=== PATIENT | female | born 1985 | race Caucasian/White ===

== ENCOUNTER 2019-08-13 11:37 | Emergency (ER) | payer BC ==
[~2019-08-13] VITALS: Ht 170.2 cm; Wt 94.9 kg
[2019-08-13 11:40] VITALS: BP 134/88
[2019-08-13 12:31] LABS: BASOPHILS # (AUTO) 0.09 x10^3/uL (0-0.1); BASOPHILS % (AUTO) 1 % (0-1); EOSINOPHILS # (AUTO) 0.27 x10^3/uL (0-0.4); EOSINOPHILS % (AUTO) 3 % (1-7); LYMPHOCYTES # (AUTO) 2.32 x10^3/uL (1-3.4); LYMPHOCYTES % (AUTO) 26 % (22-44); MD NO; MEAN CORPUSCULAR HEMOGLOBIN 27.3 pg (27.0-34.8); MEAN CORPUSCULAR HGB CONC 32.8 g/dL (32.4-35.8); MEAN CORPUSCULAR VOLUME 83.2 fL (80-100); MEAN PLATELET VOLUME 8.9 fL (7.4-10.4); MONOCYTES # (AUTO) 0.53 x10^3/uL (0.2-0.8); MONOCYTES % (AUTO) 6 % (2-9); NEUTROPHILS # (AUTO) 5.79 x10^3/uL (1.8-6.8); NEUTROPHILS % (AUTO) 64 % (42-75); PLATELET COUNT 306 x10^3/uL (130-400); RED BLOOD COUNT 4.88 x10^6/uL (3.82-5.3); RED CELL DISTRIBUTION WIDTH 13.7 % (9.6-15.2)
[2019-08-13 12:43] LABS: ANION GAP 6 mmol/L (5-15); CALCIUM 9.7 mg/dL (8.5-10.1); CHLORIDE 106 mmol/L (98-107)
[2019-08-13 12:49] LABS: CREATININE 0.92 mg/dL (0.55-1.02)
== END 2019-08-13 13:38 | disposition home or self-care (01) ==
LOC: ED 12:08
DX: N92.4 Excessive bleeding in the premenopausal period (principal); N93.8 Other specified abnormal uterine and vaginal bleeding
CPT/HCPCS: 36415; 76830; 80048; 82040; 84703; 85025; 99284

== ENCOUNTER 2020-04-25 10:57 | Emergency (ER) | payer BC ==
[~2020-04-25] VITALS: Ht 172.7 cm; Wt 87.0 kg
[2020-04-25] MEDS ORDERED: [UNRECOGNIZED DRUG - REMARK] (11:34)
[2020-04-25 11:47] LABS: BASOPHILS % (AUTO) 1 % (0-1); EOSINOPHILS % (AUTO) 1 % (1-7); LYMPHOCYTES % (AUTO) 24 % (22-44); MEAN CORPUSCULAR HEMOGLOBIN 23.2 pg (27.0-34.8); MEAN CORPUSCULAR HGB CONC 31.6 g/dL (32.4-35.8); MEAN PLATELET VOLUME 8.3 fL (7.4-10.4); MONOCYTES % (AUTO) 6 % (2-9); NEUTROPHILS % (AUTO) 69 % (42-75); PLATELET COUNT 287 x10^3/uL (130-400); RED BLOOD COUNT 4.89 x10^6/uL (3.82-5.3); RED CELL DISTRIBUTION WIDTH 16.8 % (9.6-15.2)
[2020-04-25 11:49] LABS: MD NO
[2020-04-25 12:00] LABS: ALANINE AMINOTRANSFERASE 21 U/L (12-78); ANION GAP 4 mmol/L (5-15); CALCIUM 9.5 mg/dL (8.5-10.1); CHLORIDE 108 mmol/L (98-107); CREATININE 0.91 mg/dL (0.55-1.02)
[2020-04-25 12:04] LABS: ALKALINE PHOSPHATASE 70 U/L (45-117); BILIRUBIN,TOTAL 0.4 mg/dL (0.2-1.0); TOTAL PROTEIN 7.9 g/dL (6.4-8.2)
[2020-04-25 12:25] LABS: MICROSCOPIC INDICATED
[2020-04-25 13:49] VITALS: BP 143/89
== END 2020-04-25 13:55 | disposition home or self-care (01) ==
LOC: ED 13:11
DX: K42.9 Umbilical hernia without obstruction or gangrene (principal); R10.84 Generalized abdominal pain; R10.33 Periumbilical pain
CPT/HCPCS: 36415; 76700; 80053; 81001; 83690; 84703; 85025; 87086; 99284

== ENCOUNTER → 2020-07-25 | Outpatient (CLI) | payer BC ==
[~2020-07-25] MED LIST: ALBU18HF INH; CALC200T3 PO; FAMO-79 PO; IBUP-1221 PO; LORA-439 PO; [UNRECOGNIZED DRUG - REMARK]
== END | disposition home or self-care (01) ==
LOC: STAR 13:52
PROVIDERS: ATTEND Surgery
DX: Z20.822 Contact with and (suspected) exposure to COVID-19 (principal)
CPT/HCPCS: U0003

== ENCOUNTER 2020-11-07 21:22 | Inpatient (IN) | payer BC ==
[~2020-11-07] VITALS: Ht 172.7 cm; Wt 94.6 kg
--- NOTE | 2020-11-07 21:54 | NUR ---
pt came into the ed after test covid positive sona with a fever in the low 100s. was told to come to ER if fever got worse. pt states she was 102.6 and took either 500 or 1000mg of tylenol prior to coming in to the er. Patient is resting comfortably in bed. Bed in lowest, rails engaged, call light on lap. appears diaphorectic, c/o increase mucous but a dry cough and intermittent sore throat. pt is tachy on the monitor placed on spo2/bp/ecg monitoring. WCTM.
[2020-11-07] MEDS ORDERED: ACETAMINOPHEN 325 MG TABLET ONE (22:46)
[2020-11-07] MEDS ORDERED: ACETAMINOPHEN 325 MG TABLET PO ONE (23:00)
[2020-11-07] MEDS ORDERED: SODIUM CHLORIDE 0.9% 1,000ML IVBOLUS ONE (23:00)
[2020-11-07 23:02] LABS: BASOPHILS % (AUTO) 0 % (0-1); EOSINOPHILS % (AUTO) 0 % (1-7); LYMPHOCYTES % (AUTO) 6 % (22-44); MEAN CORPUSCULAR HEMOGLOBIN 24.6 pg (27.0-34.8); MEAN CORPUSCULAR HGB CONC 32.8 g/dL (32.4-35.8); MEAN PLATELET VOLUME 8.3 fL (7.4-10.4); MONOCYTES % (AUTO) 11 % (2-9); NEUTROPHILS % (AUTO) 83 % (42-75); PLATELET COUNT 249 x10^3/uL (130-400); RED BLOOD COUNT 5.01 x10^6/uL (3.82-5.3); RED CELL DISTRIBUTION WIDTH 15.9 % (9.6-15.2)
[2020-11-07 23:12] LABS: ALANINE AMINOTRANSFERASE 25 U/L (12-78); ALBUMIN 3.7 g/dL (3.4-5.0); ANION GAP 6 mmol/L (5-15); CALCIUM 9.4 mg/dL (8.5-10.1); CHLORIDE 104 mmol/L (98-107)
[2020-11-07 23:16] LABS: ALKALINE PHOSPHATASE 76 U/L (45-117); BILIRUBIN,TOTAL 0.2 mg/dL (0.2-1.0); TROPONIN I < 0.015 ng/mL (0.000-0.045)
[2020-11-07 23:23] LABS: MICROSCOPIC NOT IND
--- NOTE | 2020-11-08 01:00 | NUR ---
PT NAD, RESTING ON GURNEY, APPEARS MORE COMFORTABLE AT THIS TIME. EYES CLOSED, EVEN AND UNLABORED RESPIRATIONS NOTED, LIGHTS DIMMED FOR PT COMFORT, BED IN LOWEST, RAILS ENGAGED, CALL LIGHT ON LAP, WCTM. CHART UP FOR RECHECK
[2020-11-08] MEDS ORDERED: SODIUM CHLORIDE 0.9% 1,000 ML IV ONE (01:30)
--- NOTE | 2020-11-08 01:36 | NUR ---
PT RESTING ON GURNEY, NAD, APPEARS COMFORTABLE, EYES CLOSED, EVEN AND UNLABORED RESPIRATIONS, TO BE ADMITTED, WCTM.
[2020-11-08 02:50] VITALS: BP 119/74
[2020-11-08] MEDS ORDERED: ONDANSETRON 2MG/ML, 2ML IVPush PRN (03:30)
[2020-11-08] MEDS ORDERED: MELATONIN 5 MG TABLET PO PRN (03:30)
[2020-11-08] MEDS ORDERED: PHARMACY MAY ADJ FOR RENAL FX MC PRN (03:30)
[2020-11-08] MEDS ORDERED: POLYETHYLENE GLYCOL 17 GM PACKET PO PRN (03:30)
[2020-11-08] MEDS ORDERED: OXYcodone IR 5MG TABLET PO PRN (03:30)
[2020-11-08] MEDS ORDERED: LABETALOL 5MG/ML, 20ML IVPush PRN (03:30)
[2020-11-08] MEDS: GUAIFENESIN/DM 200-20MG, 10ML UDC PO PRN ×2 (03:39→10:14)
[2020-11-08] MEDS: ACETAMINOPHEN 325 MG TABLET PO PRN ×3 (03:39→18:34)
[2020-11-08] MEDS: ENOXAPARIN 40 MG/0.4 ML SQ SCH (03:39)
[2020-11-08 05:27] LABS: BASOPHILS % (AUTO) 0 % (0-1); EOSINOPHILS % (AUTO) 0 % (1-7); LYMPHOCYTES % (AUTO) 14 % (22-44); MEAN CORPUSCULAR HEMOGLOBIN 24.4 pg (27.0-34.8); MEAN CORPUSCULAR HGB CONC 32.1 g/dL (32.4-35.8); MEAN PLATELET VOLUME 8.3 fL (7.4-10.4); MONOCYTES % (AUTO) 11 % (2-9); NEUTROPHILS % (AUTO) 74 % (42-75); PLATELET COUNT 236 x10^3/uL (130-400); RED BLOOD COUNT 4.76 x10^6/uL (3.82-5.3); RED CELL DISTRIBUTION WIDTH 16.7 % (9.6-15.2)
[2020-11-08 05:36] LABS: CALCIUM 8.9 mg/dL (8.5-10.1); CHLORIDE 108 mmol/L (98-107)
[2020-11-08 05:45] LABS: ALANINE AMINOTRANSFERASE 21 U/L (12-78); ALBUMIN 3.4 g/dL (3.4-5.0); ALKALINE PHOSPHATASE 66 U/L (45-117); ANION GAP 7 mmol/L (5-15); BILIRUBIN,TOTAL 0.2 mg/dL (0.2-1.0); CREATININE 0.77 mg/dL (0.55-1.02); TOTAL PROTEIN 7.3 g/dL (6.4-8.2)
[2020-11-08] MEDS ORDERED: DEXAMETHASONE 4 MG/ML, 1ML IVPush SCH (06:00)
[2020-11-08] MEDS: ALBUTEROL-IPRATROPIUM MDI INH INH SCH ×4 (06:18→20:47)
[2020-11-08 08:10] VITALS: BP 128/82
[2020-11-08] MEDS ORDERED: BUTALB/APAP/CAFFEINE 50MG/325MG/40MG PO PRN (09:00)
[2020-11-08] MEDS ORDERED: FAMOTIDINE 20 MG TABLET PO SCH (09:00)
[2020-11-08] MEDS ORDERED: LACTATED RINGERS 1,000 ML IV SCH (09:00)
[2020-11-08] MEDS: DEXAMETHASONE 4 MG/ML, 1ML IVPush SCH (10:13)
[2020-11-08] MEDS: ASCORBIC ACID 500 MG TABLET PO SCH ×2 (10:13→20:51)
[2020-11-08] MEDS: LORATADINE 10 MG TABLET PO SCH (10:14)
[2020-11-08] MEDS: NICOTINE 14MG/24 HR PATCH.TD24 TD SCH (10:14)
[2020-11-08] MEDS: ZINC SULFATE 220 MG CAPSULE PO SCH (10:14)
[2020-11-08 13:00] VITALS: BP 128/76
[2020-11-08 18:37] VITALS: BP 126/80
[2020-11-08] MEDS: CHOLECALCIFEROL 5,000u TAB PO SCH (20:50)
[2020-11-08] MEDS: FAMOTIDINE 20 MG TABLET PO SCH (20:51)
[2020-11-08] MEDS: THIAMINE 100MG TABLET PO SCH (20:51)
[2020-11-08 23:54] VITALS: BP 118/75
[2020-11-09] MEDS: ENOXAPARIN 40 MG/0.4 ML SQ SCH (03:30)
[2020-11-09] MEDS: ALBUTEROL-IPRATROPIUM MDI INH INH SCH (05:56)
[2020-11-09 08:28] VITALS: BP 135/81
[2020-11-09] MEDS: ASCORBIC ACID 500 MG TABLET PO SCH (08:45)
[2020-11-09] MEDS: DEXAMETHASONE 4 MG/ML, 1ML IVPush SCH (08:45)
[2020-11-09] MEDS: ZINC SULFATE 220 MG CAPSULE PO SCH (08:45)
[2020-11-09] MEDS: THIAMINE 100MG TABLET PO SCH (08:45)
[2020-11-09] MEDS: CHOLECALCIFEROL 5,000u TAB PO SCH (08:46)
[2020-11-09] MEDS: FAMOTIDINE 20 MG TABLET PO SCH (08:46)
[2020-11-09] MEDS: LORATADINE 10 MG TABLET PO SCH (08:46)
[2020-11-09] MEDS: NICOTINE 14MG/24 HR PATCH.TD24 TD SCH (08:46)
[2020-11-09] MEDS ORDERED: [UNRECOGNIZED DRUG - CODE] PO (10:08)
[2020-11-09] MEDS ORDERED: THIA100T67 PO (10:08)
[2020-11-09] MEDS ORDERED: ASCO500T9 PO (10:08)
[2020-11-09] MEDS ORDERED: CHOL500045 PO (10:08)
[2020-11-09] MEDS ORDERED: ZINC220C8 PO (10:08)
== END 2020-11-09 13:06 | disposition home or self-care (01) | DRG 177 ==
LOC: ED 21:42 → EDIP 11-08 02:11 → INTOOBSV 11-08 02:11 → OBSVTOIN 11-08 02:11 → 5SO 11-08 02:31 → 3N 11-08 18:10
PROVIDERS: ADMIT Internal Medicine; ATTEND Internal Medicine
DX: U07.1 COVID-19 (principal); J96.01 Acute respiratory failure with hypoxia; J12.82 Pneumonia due to coronavirus disease 2019; J45.50 Severe persistent asthma, uncomplicated; K21.9 Gastro-esophageal reflux disease without esophagitis; Z72.0 Tobacco use; Z71.6 Tobacco abuse counseling
CPT/HCPCS: 36415; 71045; 80053; 81003; 82728; 83605; 83880; 84145; 84484; 85025; 87040; 93005; G0378; J1100; J1650; U0005; J7030; J7120; U0003